=== PATIENT | male | born 1950 | race Two or more races ===

== ENCOUNTER 2020-03-18 12:48 | Emergency (ER) | payer SELFPAY ==
--- NOTE | 2020-03-18 14:15 | NUR ---
CALLED IN WAITING ROOM, NO REPLY
--- NOTE | 2020-03-18 15:01 | NUR ---
PT LEFT WITHOUT BEING TRIAGE
== END 2020-03-18 15:04 | disposition home or self-care (01) ==
LOC: ER 12:48
DX: Z53.21 Procedure and treatment not carried out due to patient leaving prior to being seen by health care provider (principal)